=== PATIENT | female | born 2000 | race American Indian/Alaskan Native ===

== ENCOUNTER 2021-09-07 20:17 | Emergency (ER) | payer SELFPAY ==
[2021-09-07 21:38] VITALS: BP 139/74
[2021-09-07] MEDS ORDERED: oxyCODONE /ACETAMINOPHEN 5-325MG TAB PO ONE (22:21)
--- NOTE | 2021-09-07 22:26 | Emergency Department Report ---
ED General Adult HPI - General Chief complaint: Dental/Oral Stated complaint: KNOCKED TOOTH OUT Time Seen by Provider: 09/07/21 22:14 Source: patient Mode of arrival: Ambulatory Limitations: No Limitations - History of Present Illness Initial comments: The patient was evaluated in the emergency department for symptoms described in the history of present illness. He/she was evaluated in the context of the global COVID-19 pandemic, which necessitated consideration that the patient might be at risk for infection with the virus that causes COVID-19. I nstitutional protocols and algorithms that pertain to the evaluation of patients at risk for COVID-19 are in a state of rapid change based on information released by regulatory bodies including the CDC and federal and state organizations. These policies and algorithms were followed during the patient's care in the emergency department. Please note that these policies, procedures and recommendations changed on a rapid basis. The patient is a 20-year-old female who presents to the ER today with a complaint of tooth being knocked out secondary to mechanical fall. Patient reports that she fell down some steps, and landed on her tooth, and knocked it out. The patient denies neck pain, chest pain, abdominal pain, shortness of breath, extremity weakness or numbness. She has not taken anything for pain. She does not have a dentist. -: Sudden Location: mouth Consistency: constant Worsens with: movement, rest - Related Data Previous Rx's Medication Instructions Recorded Last Taken Type oxyCODONE /ACETAMINOPHEN [Percocet 1 tab PO Q4HR PRN #15 tab 09/07/21 Unknown Rx 5/325] Allergies Allergy/AdvReac Type Severity Reaction Status Date / Time No Known Allergies Allergy Verified 09/07/21 22:31 ED Review of Systems ROS: Stated complaint: KNOCKED TOOTH OUT Other details as noted in HPI Constitutional: denies: fever Eyes: denies: vision change ENT: dental pain. denies: throat pain Respiratory: denies: cough Cardiovascular: denies: chest pain Musculoskeletal: back pain, arthralgia, myalgia Neurological: denies: weakness ED Past Medical Hx - Past Medical History Previous Medical History?: No - Surgical History Past Surgical History?: No - Social History Smoking Status: Current Every Day Smoker Substance Use Type: None - Medications Home Medications: Home Medications Medication Instructions Recorded Confirmed Last Taken Type oxyCODONE /ACETAMINOPHEN [Percocet 1 tab PO Q4HR PRN #15 tab 09/07/21 Unknown Rx 5/325] ED Physical Exam - General Limitations: No Limitations General appearance: alert, anxious, obese - Head Head exam: Present: atraumatic, normocephalic - Eye Eye exam: Present: normal appearance, EOMI. Absent: nystagmus - ENT ENT exam: Present: mucous membranes moist, normal external ear exam, other (Patient is speaking in full sentences. There is no stridor. The jaw/mandible is nontender.). Absent: normal exam, normal orophraynx (Patient has complete avulsion of tooth #8.) - Neck Neck exam: Present: normal inspection, full ROM. Absent: tenderness, meningismus - Respiratory Respiratory exam: Present: normal lung sounds bilaterally. Absent: respiratory distress, wheezes, rales, rhonchi, stridor, decreased breath sounds - Cardiovascular Cardiovascular Exam: Present: regular rate, normal rhythm, normal heart sounds. Absent: bradycardia, tachycardia, irregular rhythm, systolic murmur, diastolic murmur, rubs, gallop - GI/Abdominal GI/Abdominal exam: Present: soft. Absent: distended, tenderness, guarding, rebound, rigid, pulsatile mass - Extremities Exam Extremities exam: Present: normal inspection, full ROM, other (2+ pulses noted in the bilateral upper extremities. There is no long bony tenderness. The muscular compartments are soft. The pelvis is stable). Absent: pedal edema, calf tenderness - Back Exam Back exam: Present: normal inspection, full ROM. Absent: tenderness, CVA tenderness (R), CVA tenderness (L), paraspinal tenderness, vertebral tenderness - Neurological Exam Neurological exam: Present: alert, oriented X3, normal gait, other (No facial droop. Tongue midline. Extraocular movements intact bilaterally. Facial sensation intact to light touch in V1, V2, V3 distribution bilaterally. 5 and a 5 strength in 4 extremities. Sensation intact to light touch in 4 extremities.). Absent: motor sensory deficit - Psychiatric Psychiatric exam: Present: anxious - Skin Skin exam: Present: warm, dry, intact, normal color. Absent: rash ED Course Vital Signs 09/07/21 09/07/21 21:33 21:38 Temperature 98.5 F Pulse Rate 94 H Respiratory 18 Rate Blood Pressure 139/74 O2 Sat by Pulse 97 Oximetry ED Medical Decision Making - Medical Decision Making Vital Signs 09/07/21 09/07/21 21:33 21:38 Temperature 98.5 F Pulse Rate 94 H Respiratory 18 Rate Blood Pressure 139/74 O2 Sat by Pulse 97 Oximetry Differential diagnosis, including but not limited to: Mechanical fall, tooth avulsion Assessment and plan: 20-year-old female, Who is clinically sober with a GCS of 15, patient is clinically sober at this time. The cervical spine is cleared through nexus and [place] c spine rule who is returning to the ER today with a completely avulsed tooth #8, which is almost intact, and includes the root. There is a chip fracture noted at the distal end of the tooth. The tooth is placed in milk, and placed in a bag. We do not have dental preservation solution at this facility. Patient will be given Percocet for pain. I also provided the patient with a list of a number of local dental clinics. I have advised this patient to follow-up as soon as possible with an outpatient dentist, transition assistant, or oral surgeon. Her condition today does not represent an emergent medical condition, however, it is advised that she follow-up as soon as possible with an outpatient dentist or transition assistant as described. The patient is clinically sober and articulate understanding, and reports that she is reliable to follow-up Critical care attestation.: If time is entered above; I have spent that time in minutes in the direct care of this critically ill patient, excluding procedure time. ED Disposition Clinical Impression: Tooth avulsion, Fall Disposition: 01 HOME / SELF CARE / HOMELESS Is pt being admited?: No Does the pt Need Aspirin: No Condition: Good Additional Instructions: Take the pain medication as needed and directed. Follow-up as soon as possible with an outpatient dentist, oral surgeon, or transition assistant. Recommend that patient look up online, [place], will contact her insurance company to find out which emergency dental group is in her network. In addition, local dental clinics have been listed for the patient's convenience. Also recommend that patient look up/google online emergency after hours dental clinics. Please take the prescribed pain medication as needed and directed. Please return to the emergency room right away with new pain, worsened pain, migration of pain, projectile vomiting, change in mental status, confusion, i nability tolerate liquid feeds, new, worsened or different symptoms not present on the initial emergency room evaluation Dental Care 02/03 - [place] Please call to schedule [facility] [address] [address] [place] [address] [facility] [address] [facility] [address] [place] [id number] Opening Times: Thursday 7:30am - 4:30pm Thursday 7:30am - 4:30pm Thursday 7:00am - 2:00pm 7:00am - 2:00pm Thursday: closed Prescriptions: oxyCODONE /ACETAMINOPHEN [Percocet 5/325] 1 tab PO Q4HR PRN #15 tab PRN Reason: Pain , Severe (7-10) Referrals: [facility] [Outside] - [facility]
== END 2021-09-07 23:13 | disposition home or self-care (01) ==
LOC: ED 20:17
DX: S03.2XXA Dislocation of tooth, initial encounter (principal); W18.30XA Fall on same level, unspecified, initial encounter; Y93.89 Activity, other specified; Y92.89 Other specified places as the place of occurrence of the external cause; Y99.8 Other external cause status
CPT/HCPCS: 99282